=== PATIENT | female | born 2000 | race Two or more races ===

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

== ENCOUNTER 2021-06-12 18:17 | Emergency (ER) | payer OTHER ==
[~2021-06-12] VITALS: Ht 157.5 cm; Wt 70.0 kg
[~2021-06-12 18:17] MED LIST: POLY10DR RIGHTEYE
[2021-06-12 19:55] LABS: BILIRUBIN,URINE SMALL (NEG); CLARITY,URINE CLEAR; COLOR,URINE YELLOW; NITRITE,URINE NEGATIVE (NEG); PH,URINE 5.5 (<5.0-8.0); PROTEIN,URINE NEGATIVE (NEG-TRACE)
[2021-06-12] MEDS ORDERED: IV NORMAL SALINE 1000ML BAG 1,000 ML IV SCH (20:00)
[2021-06-12 20:07] LABS: BACTERIA,URINE FEW /HPF (0-FEW)
[2021-06-12 20:09] LABS: RBC,URINE 0 /HPF (0-2)
[2021-06-12 20:31] LABS: BASO % 1 % (0-3); EOS # 0.2 x10^3/uL (0.0-0.7); EOS % 3 % (0-3); HEMATOCRIT 41.7 % (36.0-47.0); LYMPH # 1.7 x10^3/uL (1.0-4.8); LYMPH % 30 % (24-48); MEAN CORPUSCULAR HEMOGLOBIN 30 pg (25-35); MEAN CORPUSCULAR HGB CONC 34 g/dL (31-37); MEAN CORPUSCULAR VOLUME 89 fL (79-100); MONO # 0.5 x10^3/uL (0.0-1.1); MONO % 9 % (0-9); NEUT # 3.2 x10^3/uL (1.8-7.7); NEUT % 58 % (31-73); PLATELET COUNT 221 x10^3/uL (140-400); RED BLOOD COUNT 4.69 x10^6/uL (3.50-5.40); RED CELL DISTRIBUTION WIDTH 13.8 % (11.5-14.5); WHITE BLOOD COUNT 5.6 x10^3/uL (4.0-11.0)
[2021-06-12 20:43] LABS: CALCIUM 8.7 mg/dL (8.5-10.1); CREATININE 0.6 mg/dL (0.6-1.0); GFR 128.8; POTASSIUM 4.3 mmol/L (3.5-5.1)
[2021-06-12 20:45] LABS: ALBUMIN 3.6 g/dL (3.4-5.0); ALBUMIN/GLOBULIN RATIO 1.1 (1.0-1.7); TOTAL BILIRUBIN 0.4 mg/dL (0.2-1.0); TOTAL PROTEIN 6.8 g/dL (6.4-8.2)
--- NOTE | 2021-06-12 21:02 | RAD ---
Examination: CT of the abdomen pelvis without contrast HISTORY: History of left flank pain COMPARISON: None available TECHNIQUE: Axial CT images of the abdomen pelvis were performed without contrast. Coronal and sagitta l reformats are performed Exposure: One or more of the following individualized dose reduction techniques were utilized for thi s examination: 1. Automated exposure control 2. Adjustment of the mA and/or kV according to patient size 3. Use of iterative reconstruction technique FINDINGS: Few scattered subcentimeter nodules identified in the bibasilar lungs the largest measuring 5 mm in t he right lung base. No evidence of free air identified in the abdomen. The evaluation of the solid or babatunde is limited due to lack of IV contrast. The evaluation of bowel is limited due to lack of oral co ntrast. The visualized noncontrasted liver, spleen, adrenals grossly appears unremarkable. Cholecyste ctomy changes identified. The stomach is mildly distended with visualized pancreas grossly appears un remarkable. Small bowel is nondilated. The appendix is normal. Feces and gas noted in the colon. Urin kerri bladder is mildly distended. Minimal fat stranding identified about the urinary bladder. Punctate 2 mm calculus left kidney. No evidence of lytic or destructive lesion. IMPRESSION: 1. Punctate 2 mm calculus left kidney. 2. Minimal fat stranding identified about the urinary bladder. Correlate for urinary tract infection . 3. Few scattered subcentimeter nodules identified in the bibasilar lungs the largest measuring 5 mm in the right lung base. Electronically signed by: Roe Giordano MD (06/12/2021 8:59 PM) [id number]
[2021-06-12] MEDS ORDERED: CEPH500C PO (21:16)
--- NOTE | 2021-06-12 21:17 | PHYS DOC ---
Past Medical History Past Medical History: No Pertinent History (CAITIE PATEL FAMILY PRACTICE MEDICAL DOCTOR) Past Surgical History: , Other Additional Past Surgical Histo: kidney stone, (CAITIE PATEL FAMILY PRACTICE MEDICAL DOCTOR) Smoking Status: Never Smoker Alcohol Use: None Drug Use: None (CAITIE PATEL APRN) General Adult EDM: Chief Complaint: FLANK PAIN HPI: HPI: Patient is a 20 year old female who presents with left flank pain that radiates to the left lower abdomen area for last 3 days. She states it comes and goes. This time she has no pain. She states she takes Tylenol but she last took that earlier this morning. Patient denies fever, nausea, vomiting, diarrhea, body aches, chills, chest pain, shortness of breath, cough, diarrhea. She has had a kidney stone in the past. (CAITIE PATEL FAMILY PRACTICE MEDICAL DOCTOR) Review of Systems: Review of Systems: Constitutional: Denies fever or chills. [] Eyes: Denies change in visual acuity. [] HENT: Denies nasal congestion or sore throat. [] Respiratory: Denies cough or shortness of breath. [] Cardiovascular: Denies chest pain or edema. [] GI: +Left-sided abdominal pain, denies nausea, vomiting, bloody stools or diarrhea. [] : Denies dysuria. [] Musculoskeletal: Denies back pain or joint pain. [] Integument: Denies rash. [] Neurologic: Denies headache, focal weakness or sensory changes. [] Endocrine: Denies polyuria or polydipsia. [] Lymphatic: Denies swollen glands. [] Psychiatric: Denies depression or anxiety. [] (CAITIE PATEL FAMILY PRACTICE MEDICAL DOCTOR) Heart Score: C/O Chest Pain: No Risk Factors: Risk Factors: DM, Current or recent (<one month) smoker, HTN, HLP, family history of CAD, obesity. Risk Scores: Score 0 - 3: 2.5% MACE over next 6 weeks - Discharge Home Score 4 - 6: 20.3% MACE over next 6 weeks - Admit for Clinical Observation Score 7 - 10: 72.7% MACE over next 6 weeks - Early Invasive Strategies (CAITIE PATEL FAMILY PRACTICE MEDICAL DOCTOR) Current Medications: Current Medications Medications (Trade) Dose Ordered Sig/Davon Start Time Stop Time Status Last Admin Dose Admin Sodium Chloride 1,000 ml @ 1,000 mls/hr Q1H 06/12/21 20:00 06/12/21 20:59 DC 06/12/21 20:20 1,000 MLS/HR (CAITIE PATEL APRN) Allergies: Allergies: Allergies Coded Allergies Type Severity Reaction Last Updated Verified No Known Drug Allergies 03/30/19 No (CAITIE PATEL APRN) Physical Exam: PE: Constitutional: Well developed, well nourished, no acute distress, non-toxic appearance. [] HENT: Normocephalic, atraumatic, bilateral external ears normal, oropharynx moist, no oral exudates, nose normal. [] Eyes: PERRLA, EOMI, conjunctiva normal, no discharge. [] Neck: Normal range of motion, no tenderness, supple, no stridor. [] Cardiovascular:Heart rate regular rhythm, no murmur [] Lungs & Thorax: Bilateral breath sounds clear to auscultation [] Abdomen: Bowel sounds normal, soft, no tenderness, no masses, no pulsatile masses. [] Skin: Warm, dry, no erythema, no rash. [] Back: No tenderness, no CVA tenderness. [] Extremities: No tenderness, no cyanosis, no clubbing, ROM intact, no edema. [] Neurologic: Alert and oriented X 3, normal motor function, normal sensory functi on, no focal deficits noted. [] Psychologic: Affect normal, judgement normal, mood normal. [] Normal physical exam (CAITIE PATEL APRN) Current Patient Data: Labs: Laboratory Tests Test 06/12/21 19:37 06/12/21 19:44 06/12/21 20:25 Urine Collection Type Unknown Urine Color Yellow Urine Clarity Clear Urine pH 5.5 (<5.0-8.0) Urine Specific [place] >=1.030 (1.000-1.030) Urine Protein Negative mg/dL (NEG-TRACE) Urine Glucose (UA) Negative mg/dL (NEG) Urine Ketones (Stick) Negative mg/dL (NEG) Urine Blood Negative (NEG) Urine Nitrite Negative (NEG) Urine Bilirubin Small (NEG) Urine Urobilinogen Dipstick 1.0 mg/dL (0.2 mg/dL) Urine Leukocyte Esterase Small (NEG) Urine RBC 0 /HPF (0-2) Urine WBC 1-4 /HPF (0-4) Urine Squamous Epithelial Cells Mod /LPF Urine Bacteria Few /HPF (0-FEW) Urine Mucus Mod /LPF POC Urine HCG, Qualitative Hcg negative (Negative) White Blood Count 5.6 x10^3/uL (4.0-11.0) Red Blood Count 4.69 x10^6/uL (3.50-5.40) Hemoglobin 14.0 g/dL (12.0-15.5) Hematocrit 41.7 % (36.0-47.0) Mean Corpuscular Volume 89 fL (79-100) Mean Corpuscular Hemoglobin 30 pg (25-35) Mean Corpuscular Hemoglobin Concent 34 g/dL (31-37) Red Cell Distribution Width 13.8 % (11.5-14.5) Platelet Count 221 x10^3/uL (140-400) Neutrophils (%) (Auto) 58 % (31-73) Lymphocytes (%) (Auto) 30 % (24-48) Monocytes (%) (Auto) 9 % (0-9) Eosinophils (%) (Auto) 3 % (0-3) Basophils (%) (Auto) 1 % (0-3) Neutrophils # (Auto) 3.2 x10^3/uL (1.8-7.7) Lymphocytes # (Auto) 1.7 x10^3/uL (1.0-4.8) Monocytes # (Auto) 0.5 x10^3/uL (0.0-1.1) Eosinophils # (Auto) 0.2 x10^3/uL (0.0-0.7) Basophils # (Auto) 0.0 x10^3/uL (0.0-0.2) Sodium Level 143 mmol/L (136-145) Potassium Level 4.3 mmol/L (3.5-5.1) Chloride Level 109 mmol/L (98-107) H Carbon Dioxide Level 23 mmol/L (21-32) Anion Gap 11 (6-14) Blood Urea Nitrogen 9 mg/dL (7-20) Creatinine 0.6 mg/dL (0.6-1.0) Estimated GFR (Cockcroft-Gault) 128.8 BUN/Creatinine Ratio 15 (6-20) Glucose Level 97 mg/dL (70-99) Calcium Level 8.7 mg/dL (8.5-10.1) Total Bilirubin 0.4 mg/dL (0.2-1.0) Aspartate Amino Transferase (AST) 31 U/L (15-37) Alanine Aminotransferase (ALT) 60 U/L (14-59) H Alkaline Phosphatase 154 U/L (46-116) H Total Protein 6.8 g/dL (6.4-8.2) Albumin 3.6 g/dL (3.4-5.0) Albumin/Globulin Ratio 1.1 (1.0-1.7) Lipase 105 U/L (73-393) Laboratory Tests 06/12/21 20:25 Laboratory Tests 06/12/21 20:25 Vital Signs: Vital Signs Date Time Temp Pulse Resp B/P (MAP) Pulse Ox O2 Delivery O2 Flow Rate FiO2 06/12/21 18:45 98.3 78 16 111/75 99 Room Air 98.3 (CAITIE PATEL APRN) EKG: EKG: [] (CAITIE PATEL APRN) Radiology/Procedures: Radiology/Procedures: [] Impression: [facility] [address] [place] [address] IMAGING REPORT Signed PATIENT: HAROON CRANDALL JACCOUNT: [id number] : 2000 LOCATION: ER AGE: 20 SEX: F EXAM STATUS: REG ER ORD. PHYSICIAN: CAITIE PATEL APRN REASON: left flank pain, hx kidney stones PROCEDURE: CT ABDOMEN PELVIS WO CONTRAST Examination: CT of the abdomen pelvis without contrast HISTORY: History of left flank pain COMPARISON: None available TECHNIQUE: Axial CT images of the abdomen pelvis were performed without contrast. Coronal and sagittal reformats are performed Exposure: One or more of the following individualized dose reduction techniques were utilized for this examination: 1. Automated exposure control 2. Adjustment of the mA and/or kV according to patient size 3. Use of iterative reconstruction technique FINDINGS: Few scattered subcentimeter nodules identified in the bibasilar lungs the largest measuring 5 mm in the right lung base. No evidence of free air identified in the abdomen. The evaluation of the solid organs is limited due to lack of IV contrast. The evaluation of bowel is limited due to lack of oral contrast. The visualized noncontrasted liver, spleen, adrenals grossly appears unremarkable. Cholecystectomy changes identified. The stomach is mildly distended with visualized pancreas grossly appears unremarkable. Small bowel is nondilated. The appendix is normal. Feces and gas noted in the colon. Urinary bladder is mildly distended. Minimal fat stranding identified about the urinary bladder. Punctate 2 mm calculus left kidney. No evidence of lytic or destructive lesion. IMPRESSION: 1. Punctate 2 mm calculus left kidney. 2. Minimal fat stranding identified about the urinary bladder. Correlate for urinary tract infection. 3. Few scattered subcentimeter nodules identified in the bibasilar lungs the largest measuring 5 mm in the right lung base. Electronically signed by: Roe Giordano MD (06/12/2021 8:59 PM) [id number] DICTATED and SIGNED BY: ROE GIORDANO MD DATE: 06/12/[id number] 0 (CAITIE PATEL APRN) Course & Med Decision Making: Course & Med Decision Making Pertinent Labs and Imaging studies reviewed. (See chart for details) See HPI. Alert and oriented 4. Ambulatory steady gait. Speaks in full clear sentences. No CVA tenderness. No abdominal tenderness and abdomen is soft and nontender. Urinalysis shows infection. CT abdomen pelvis shows a bladder infection. She is gotten a liter of fluid. We will give the patient Rocephin here in the ED IV and then should be sent home on Keflex. [] (CAITIE PATEL APRN) Course & Med Decision Making Patients Care and treatment plan provided by ER Nurse Practitioner. I was available for consult. Patient's chart reviewed. (RADHA DURBIN DO) [place] Disclaimer: Dragfarrah Disclaimer: This electronic medical record was generated, in whole or in part, using a voice recognition dictation system. (CAITIE PATEL APRN) Departure Departure Impression: Primary Impression: Urinary tract infection Qualified Codes: N30.00 - Acute cystitis without hematuria Disposition: HOME / SELF CARE / HOMELESS Condition: STABLE Referrals: NO PCP (PCP) Patient Instructions: Urinary Tract Infection Additional Instructions: Follow-up with your primary care provider. Drink plenty of fluids. Take medication as prescribed and with food. Scripts Cephalexin (CEPHALEXIN) 500 Mg Capsule 1 CAP PO TID for 7 Days, #21 CAP Prov: CAITIE PATEL APRN 06/12/21 CAITIE PATEL APRN Jun 12, 2021 21:17 RADHA DURBIN DO Jun 13, 2021 03:59
[2021-06-12] MEDS ORDERED: cefTRIAXone IV Push 1 GM VIAL. IVP ONE (22:00)
[2021-06-12 22:06] VITALS: BP 118/66
== END 2021-06-12 22:16 | disposition home or self-care (01) ==
LOC: ER 18:17
DX: N30.00 Acute cystitis without hematuria (principal)
CPT/HCPCS: 36415; 74176; 80053; 81001; 81025; 83690; 85025; 87086; 96361; 96374; 99284; J0696; J7030

== ENCOUNTER 2022-02-03 18:07 | Emergency (ER) | payer OTHER ==
[~2022-02-03] VITALS: Ht 157.5 cm; Wt 94.8 kg
[~2022-02-03 18:07] MED LIST changes: +CEPH500C PO
[2022-02-03 19:49] VITALS: BP 116/65
== END 2022-02-03 21:28 | disposition left against medical advice (07) ==
LOC: ER 18:07
DX: R42 Dizziness and giddiness (principal); R11.2 Nausea with vomiting, unspecified; R19.7 Diarrhea, unspecified; Z53.21 Procedure and treatment not carried out due to patient leaving prior to being seen by health care provider
CPT/HCPCS: 81025